=== PATIENT | male | born 1975 | race Two or more races ===

== ENCOUNTER 2023-12-19 15:29 | Emergency (ER) | payer BC ==
[2023-12-19] MEDS: LIDOCAINE VISCOUS 2% 15 ML CUP PO ONE (15:45)
[2023-12-19] MEDS: SODIUM CHLORIDE 0.9% 1,000 ML IV STA (15:46)
[2023-12-19 16:04] LABS: Basophils # (A) 0.1 k/uL (0-0.2); Basophils % (A) 1 %; Eosinophils # (A) 0.2 k/uL (0-0.7); Eosinophils % (A) 2 %; HCT 42.2 % (39.0-53.0); HGB 13.9 gm/dL (13.0-17.5); Lymphocytes # (A) 2.2 k/uL (1.0-4.8); Lymphocytes % (A) 26 %; MCH 32.9 pg (25.0-35.0); MCV 99.7 fL (80.0-100.0); Mean Platelet Volume 7.6; Monocytes # (A) 0.8 k/uL (0-1.0); Monocytes % (A) 10 %; Neutrophils # (A) 4.9 k/uL (1.3-7.7); Neutrophils % (A) 59 %; Platelet Count 351 k/uL (150-450); RBC 4.23 m/uL (4.30-5.90); RDW 12.3 % (11.5-15.5); WBC 8.3 k/uL (3.8-10.6)
[2023-12-19 16:12] VITALS: TEMP 97
[2023-12-19 16:22] LABS: African American GFR (CKD) >90 (>60 ml/min/1.73 sqM); Alcohol 40 mg/dL; Anion Gap 7 mmol/L; Blood Urea Nitrogen 16 mg/dL (9-20); Calcium 8.3 mg/dL (8.4-10.2); Carbon Dioxide 25 mmol/L (22-30); Chloride 105 mmol/L (98-107); Glucose 82 mg/dL (74-99); Non-African American GFR(CKD) >90 (>60 ml/min/1.73 sqM); Potassium 4.2 mmol/L (3.5-5.1); Sodium 137 mmol/L (137-145)
--- NOTE | 2023-12-19 17:13 | ED ---
General Adult HPI - General Chief complaint: Weakness Stated complaint: Dizziness Time Seen by Provider: 12/19/23 15:30 Source: patient, RN notes reviewed, old records reviewed Mode of arrival: EMS Limitations: no limitations - History of Present Illness Initial comments: Patient is a 48-year-old male who presents emergency department for feeling lightheaded after taking THC edibles for the first time approximately 2 and half hours prior to arrival. Decided to take THC edibles and watch the tigers opening day again. States he did have a shot earlier today as well. Has a remote history of cocaine abuse but nothing recently. Began feeling lightheaded shortly after taking the THC and became concerned which is why presents for further evaluation. States he feels anxious as well regarding this. Took 40 mg of THC gummy. Denies any other acute complaints at this time including denying chest pain, shortness of breath, abdominal pain, nausea, vomiting. States he feels improved at this time and presents for further evaluation. - Related Data Allergies Allergy/AdvReac Type Severity Reaction Status Date / Time No Known Allergies Allergy Verified 12/19/23 15:40 Review of Systems ROS Statement: Those systems with pertinent positive or pertinent negative responses have been documented in the HPI. Review of Systems: CONST: Denies fever EYES: Denies blurry vision ENT: Denies nasal congestion C/V: Denies Chest pain RESP: Denies shortness of breath GI: Denies abdominal pain : Denies dysuria SKIN: Denies rash. MSK: Denies joint pain. NEURO: Denies headache ROS Other: All systems not noted in ROS Statement are negative. Past Medical History Past Medical History: Hypertension Past Surgical History: Orthopedic Surgery Smoking Status: Current every day smoker Past Alcohol Use History: Abuse Past Drug Use History: Cocaine, Marijuana General Exam - General Exam Comments Initial Comments: General: Appears in no acute distress. HEAD: Normal with no signs of head trauma. EYES: PERRLA, EOMI, conjunctiva normal, no discharge. Pulls are approximately 3 mm and equal bilaterally. ENT: Hearing grossly intact, normal oropharynx. RESPIRATORY: Clear breath sounds bilaterally. No wheezes, rales, or rhonchi. C/V: Regular rate and rhythm. S1 and S2 auscultated, no edema, peripheral pulses 2+ and intact throughout ABD: Abd is soft, nontender, nondistended EXT: Normal range of motion, no obvious deformity SKIN: No rashes or lesions observed on exposed skin. NEURO: Alert and oriented x 4. Cranial nerves II-XII intact. No focal sensory or strength deficits. Cerebellar function intact as evident by normal finger- nose testing and [id number] testing. Limitations: no limitations Course Vital Signs 12/19/23 12/19/23 12/19/23 15:37 15:40 15:50 Temperature 97 F L Pulse Rate 73 72 Respiratory 20 20 20 Rate Blood Pressure 118/89 118/89 O2 Sat by Pulse 98 99 Oximetry 12/19/23 12/19/23 16:40 17:22 Temperature Pulse Rate 68 68 Respiratory 16 16 Rate Blood Pressure 130/68 130/60 O2 Sat by Pulse 98 98 Oximetry Medical Decision Making - Medical Decision Making Was pt. sent in by a medical professional or institution (, PA, TOE TRIMMER, urgent care, hospital, or intermediate...) When possible be specific @ -No Did you speak to anyone other than the patient for history (EMS, parent, family, police, friend...)? What history was obtained from this source @ -No Did you review nursing and triage notes (agree or disagree)? Why? @ -I reviewed and agree with nursing and triage notes Were old charts reviewed (outside hosp., previous admission, EMS record, old EKG, old radiological studies, urgent care reports/EKG's, intermediate records)? Report findings @ -No old charts were reviewed Differential Diagnosis (chest pain, altered mental status, abdominal pain women, abdominal pain men, vaginal bleeding, weakness, fever, dyspnea, syncope, headache, dizziness, GI bleed, back pain, seizure, CVA, palpatations, mental health, musculoskeletal)? @ -Marijuana intoxication, dehydration, alcohol abuse. This list is not all inclusive. EKG interpreted by me (3pts min.). @ -As above X-rays interpreted by me (1pt min.). @ -None done CT interpreted by me (1pt min.). @ -None done U/S interpreted by me (1pt. min.). @ -None done What testing was considered but not performed or refused? (CT, X-rays, U/S, labs)? Why? @ -None What meds were considered but not given or refused? Why? @ -None Did you discuss the management of the patient with other professionals (professionals i.e. , PA, TOE TRIMMER, lab, RT, psych nurse, transition social worker, horse racing manager, teacher, aoc plans intelligence officer chief, case aide)? Give summary @ -No Was smoking cessation discussed for >3mins.? @ -No Was critical care preformed (if so, how long)? @ -No Were there social determinants of health that impacted care today? How? (Homelessness, low income, unemployed, alcoholism, drug addiction, transportat ion, low edu. Level, literacy, decrease access to med. care, senior living, rehab)? @ -No Was there de-escalation of care discussed even if they declined (Discuss DNR or withdrawal of care, Hospice)? DNR status @ -No What co-morbidities impacted this encounter? (DM, HTN, Smoking, COPD, CAD, Cancer, CVA, ARF, Chemo, Hep., AIDS, mental health diagnosis, sleep apnea, morbid obesity)? @ -None Was patient admitted / discharged? Hospital course, mention meds given and route, prescriptions, significant lab abnormalities, going to OR and other pertinent info. @ -Patient presents with apparent marijuana intoxication. We will monitor the patient's vitals for at least 2 hours and obtain basic labs. EKG will also be obtained. He will be given 1 L fluid bolus. Patient is currently asymptomatic. He is complaining of some tongue pain from biting his tongue and will be given a dose of viscous lidocaine. Patient was in agreement this plan. Vital signs are within acceptable limits. EKG shows no signs of acute ischemia. Patient's laboratory studies are remarkable for a slight elevated alcohol level of 40 but patient is currently clinically sober at this time. Remainder the labs unremarkable. On reevaluation, patient is feeling improved. No acute complaints at this time. We observed him for 2 hours here in the department. He will be discharged home with strict return precautions. Patient was in agreement this plan. I did relocation counselor him on maybe not using THC Gummies in the future or using a smaller dose to trial it as he is not in experience this type of product. Patient was in agreement this plan. I instructed the patient to follow up with their PCP in the next 1-3 days. I explained that the patient should return to the emergency department if they experience any worsening symptoms. Strict return precautions were discussed with the patient. The patient expressed understanding of these instructions. I answered all questions that the patient had. The patient was discharged home in good condition with their prescriptions and follow up information. Undiagnosed new problem with uncertain prognosis? @ -No Drug Therapy requiring intensive monitoring for toxicity (Heparin, Nitro, Insulin, Cardizem)? @ -No Were any procedures done? @ -No Diagnosis/symptom? @ -Marijuana intoxication Acute, or Chronic, or Acute on Chronic? @ -Acute Uncomplicated (without systemic symptoms) or Complicated (systemic symptoms)? @ -Complicated Side effects of treatment? @ -No Exacerbation, Progression, or Severe Exacerbation? @ -No Poses a threat to life or bodily function? How? (Chest pain, [place], [place], pneumonia, PE, COPD, DKA, ARF, appy, cholecystitis, CVA, Diverticulitis, Homicidal, Suicidal, threat to staff... and all critical care pts) @ -No - Lab Data Result diagrams: 12/19/23 15:42 12/19/23 15:42 Lab Results 12/19/23 12/19/23 Range/Units 15:42 15:42 WBC 8.3 (3.8-10.6) k/uL RBC 4.23 L (4.30-5.90) m/uL Hgb 13.9 (13.0-17.5) gm/dL Hct 42.2 (39.0-53.0) % MCV 99.7 (80.0-100.0) fL MCH 32.9 (25.0-35.0) pg MCHC 33.0 (31.0-37.0) g/dL RDW 12.3 (11.5-15.5) % Plt Count 351 (150-450) k/uL MPV 7.6 Neutrophils % 59 % Lymphocytes % 26 % Monocytes % 10 % Eosinophils % 2 % Basophils % 1 % Neutrophils # 4.9 (1.3-7.7) k/uL Lymphocytes # 2.2 (1.0-4.8) k/uL Monocytes # 0.8 (0-1.0) k/uL Eosinophils # 0.2 (0-0.7) k/uL Basophils # 0.1 (0-0.2) k/uL Sodium 137 (137-145) mmol/L Potassium 4.2 (3.5-5.1) mmol/L Chloride 105 (98-107) mmol/L Carbon Dioxide 25 (22-30) mmol/L Anion Gap 7 mmol/L BUN 16 (9-20) mg/dL Creatinine 0.67 (0.66-1.25) mg/dL Est GFR (CKD-EPI)AfAm >90 (>60 ml/min/1.73 sqM) Est GFR (CKD-EPI)NonAf >90 (>60 ml/min/1.73 sqM) Glucose 82 (74-99) mg/dL Calcium 8.3 L (8.4-10.2) mg/dL Serum Alcohol 40 mg/dL - EKG Data -: EKG Interpreted by Me EKG Comments: 12-lead Electrocardiogram Interpretation Note EKG was reviewed and interpreted by myself. 12-lead ECG performed at 1533 is interpreted by me as revealing normal sinus rhythm at a rate of 75 beats per minute. [place] is normal. [place] interval is 136 ms, QRS durations 88 ms, QTc is 423 ms.. There were no ST or T wave abnormalities to suggest myocardial ischemia or injury. R wave progression across the precordium was satisfactory. By my interpretation this EKG is non-diagnostic for acute ischemia. Disposition Clinical Impression: Marijuana intoxication Disposition: HOME SELF-CARE Condition: Good Is patient prescribed a controlled substance at d/c from ED?: No Referrals: Jaguar Loredo MD [Primary Care Provider] - 1-2 days Time of Disposition: 17:30
[2023-12-19 17:27] VITALS: BP 130/60; PULSE 68; RESP 16
== END 2023-12-19 17:27 | disposition home or self-care (01) ==
LOC: EC 15:29
DX: F12.929 Cannabis use, unspecified with intoxication, unspecified (principal); F17.200 Nicotine dependence, unspecified, uncomplicated; F12.90 Cannabis use, unspecified, uncomplicated; Y90.2 Blood alcohol level of 40-59 mg/100 ml
CPT/HCPCS: 36415; 80048; 80320; 85025; 93005; 96360; 99285